=== PATIENT | female | born 1995 | race African-American/Black ===

== ENCOUNTER 2024-03-13 13:59 | Emergency (ER) | payer OTHER ==
[~2024-03-13] VITALS: Ht 160 cm; Wt 98.2 kg
[2024-03-13 14:09] VITALS: BP 112/76; PULSE 88; RESP 14; TEMP 97.5
[2024-03-13] MEDS ORDERED: HYDR30CR39 TP (15:40)
== END 2024-03-13 15:54 | disposition home or self-care (01) ==
LOC: EMS 13:59
DX: L25.9 Unspecified contact dermatitis, unspecified cause (principal)
CPT/HCPCS: 99282; Z7502